=== PATIENT | female | born 1960 | race Caucasian/White ===

== ENCOUNTER → 2017-09-03 | Outpatient (CLI) | payer OTHER ==
[~2017-09-03] MED LIST: ALPR-475 PO; ALPRAZOLAM PO; CARI250T; CARI350T PO; CHOL4PAC2 PO; ENAL5TAB70 PO; ESZO3TAB28 PO; HYDR-3240; LEVO125T PO; LEVO200T PO; LISI-170 PO; LISI5TAB PO; LUBI24CA7 PO; ONDA4TAB10 PO; OXYC5TAB3 PO; OXYC60TA8 PO; RIZA10TA20 PO
== END | disposition home or self-care (01) ==
LOC: CFH 13:22
PROVIDERS: ATTEND Family Medicine
DX: N64.4 Mastodynia (principal)
CPT/HCPCS: 77066